=== PATIENT | female | born 2000 | race Caucasian/White ===

== ENCOUNTER 2023-04-13 17:03 | Emergency (ER) | payer BC, MEDICAID, SELFPAY ==
[2023-04-13 17:43] VITALS: BP 126/84; PULSE 82; RESP 18; TEMP 36.8; O2SAT 100; BMI 44.0
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
[2023-04-13] MEDS: iohexol 350 mg/mL 500 mL Btl (per mL) IV (20:14)
[2023-04-13 20:45] VITALS: RESP 16; O2SAT 97
[2023-04-13] MEDS: fentaNYL 50 mcg/mL INJ 2mL 100 MCG IVP (20:45)
[2023-04-13 20:49] VITALS: BP 160/78; PULSE 78; RESP 16; O2SAT 98
[2023-04-13 21:10] LABS: HCG Qualitative Urine. Negative (Negative)
[2023-04-13 21:59] LABS: Basophils # 0.1 10^3/uL (0.0-0.1); Basophils % 0.3 %; Hematocrit 37.6 % (37.0-47.0); Hemoglobin 11.4 g/dL (11.5-15.3); Lymphocytes # 1.5 10^3/uL (0.8-4.8); Lymphocytes % 9.2 %; Mean Corpuscular HGB Conc 30.3 g/dL (30.0-36.0); Mean Corpuscular Hemoglobin 23.8 pg (28.0-34.0); Mean Corpuscular Volume 78.5 fl (81-99); Mean Platelet Volume 9.9 fL (7.4-10.4); Monocytes # 0.8 10^3/uL (0.2-0.9); Monocytes % 4.9 %; Neutrophils # 14.33 10^3/uL (1.8-7.7); Neutrophils % 85.3 %; Nucleated Red Blood Cells % 0 %; Platelet Count 322 10^3/cmm (130-400); Red Blood Count 4.79 10^6/uL (4.1-5.3); Red Cell Distribution Width 14.6 % (12.1-15.1); White Blood Count 16.8 10^3/uL (4.0-10.0)
[2023-04-13 22:19] LABS: Alanine Aminotransferase 29 U/L (0-33); Albumin Level 4.5 g/dL (3.5-5.2); Alkaline Phosphatase 72 U/L (35-105); Anion Gap 17.2 (5-19); Aspartate Amino Transferase 54 U/L (0-32); Blood Urea Nitrogen 8 mg/dL (6-20); Calcium 9.4 mg/dL (8.5-10.5); Carbon Dioxide 21 mmol/L (22-29); Chloride 104 mmol/L (98-107); Globulin 2.6 g/dL (1.3-4.6); Glomerular Filtration Rate 104.6 mL/min (90-130); Glucose 101 mg/dL (65-115); Osmolality Calculated 284 mOsm/kg (285-295); Potassium 4.2 mmol/L (3.5-5.1); Sodium 138 mmol/L (136-145); Total Bilirubin 0.4 mg/dL (0.15-1.2); Total Protein 7.1 g/dL (6.6-8.7)
[2023-04-13 22:47] LABS: Urine Appearance Clear (CLEAR); Urine Color Yellow (Yellow)
[2023-04-13 22:48] LABS: Add Urine Microscopic? YES; Bilirubin Urine Neg (Negative); Blood Urine 3+ (Negative); Glucose Urine UA Norm (Normal); Ketones Urine Negative (Negative); Leukocyte Esterase Urine Negative (Negative); Nitrate Urine Negative (Negative); Protein Urine 1+ (Negative); pH Urine 7 (5-7)
[2023-04-13 22:49] LABS: Bacteria Urine 1+ /hpf; Mucus Urine 1+ /hpf; Squamous Epithelial Cell Urine 0-4 /hpf (0-5)
[2023-04-13] MEDS: HYDROcodone-acetaminophen 10-325 mg Tablet 1 TAB PO (22:57)
[2023-04-13] MEDS: HYDROcodone-acetaminophen 7.5-325 mg Tablet 2 TAB PO (22:58)
[2023-04-13 23:02] VITALS: BP 131/83; PULSE 77; RESP 18; O2SAT 97
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
== END 2023-04-13 23:30 | disposition home or self-care (01) ==
PROVIDERS: Emergency Provider Nurse Practitioner Family
DX: S27.322A Contusion of lung, bilateral, initial encounter (principal); V57.5XXA Driver of pick-up truck or van injured in collision with fixed or stationary object in traffic accident, initial encounter
CPT/HCPCS: 36415; 70450; 71260; 72125; 73590; 74177; 80053; 81001; 81025; 85025; 96374; 99285; J3010; Q9967

== ENCOUNTER 2023-04-14 07:28 | Emergency (ER) | payer BC, MEDICAID, SELFPAY ==
[2023-04-14 07:33] VITALS: BP 164/103; PULSE 83; RESP 16; O2SAT 98
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
[2023-04-14] MEDS: ketorolac 60 mg/2 mL INJ IM (07:51)
[2023-04-14 09:19] VITALS: BP 159/99; PULSE 59; O2SAT 98
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
== END 2023-04-14 09:21 | disposition home or self-care (01) ==
PROVIDERS: Emergency Provider Nurse Practitioner
DX: S27.322A Contusion of lung, bilateral, initial encounter (principal); V47.5XXA Car driver injured in collision with fixed or stationary object in traffic accident, initial encounter
CPT/HCPCS: 71046; 96372; 99284; J1885

== ENCOUNTER → 2023-04-25 14:09 | Outpatient (BNVA) | payer BC, MEDICAID, SELFPAY | PROVIDERS: Visit Provider Nurse Practitioner Family | DX: M25.522 Pain in left elbow (principal); M25.512 Pain in left shoulder; V89.2XXA Person injured in unspecified motor-vehicle accident, traffic, initial encounter; J93.9 Pneumothorax, unspecified; S27.329A Contusion of lung, unspecified, initial encounter; M79.604 Pain in right leg; M79.605 Pain in left leg | CPT/HCPCS: 71046; 73030; 73080; 73590; 81025 ==